=== PATIENT | female | born 1955 | race Caucasian/White ===

== ENCOUNTER 2018-01-31 12:45 | Emergency (ER) | payer OTHER ==
[~2018-01-31] VITALS: Ht 165.1 cm; Wt 115.2 kg
[2018-01-31 12:54] VITALS: BP 124/70
[2018-01-31 14:54] VITALS: BP 122/69
== END 2018-01-31 15:00 | disposition home or self-care (01) ==
LOC: MED 12:45
DX: S83.92XA Sprain of unspecified site of left knee, initial encounter (principal); I10 Essential (primary) hypertension; M54.30 Sciatica, unspecified side; V00.131A Fall from skateboard, initial encounter; Y93.51 Activity, roller skating (inline) and skateboarding; Y92.89 Other specified places as the place of occurrence of the external cause; Y99.8 Other external cause status
CPT/HCPCS: 73562; 99284